=== PATIENT | female | born 1990 | race Caucasian/White ===

== ENCOUNTER 2016-12-30 19:10 | Emergency (ER) | payer OTHER ==
--- NOTE | 2016-12-30 19:41 | PDOC ---
History of Present Illness - General Chief Complaint: Nausea/Vomiting Stated Complaint: 18 WEEKS - HEADACHE Time Seen by Provider: 12/30/16 19:18 History Source: Patient Exam Limitations: No Limitations - History of Present Illness Timing/Duration: 4-6 hours Severity: mild Associated Symptoms: reports: headaches (frontal), nausea/vomiting. denies: chest pain, cough, diaphoresis, fever/chills, malaise, shortness of breath, syncope Past History - Travel Traveled outside of the country in the last 30 days: No Close contact w/someone who was outside of country & ill: No - Past Medical History Allergies/Adverse Reactions: Allergies Allergy/AdvReac Type Severity Reaction Status Date / Time No Known Allergies Allergy Verified 12/30/16 19:34 Home Medications: Ambulatory Orders Progesterone,Micronized [Progesterone] 200 mg PO DAILY 12/30/16 Anemia: No Asthma: No Cancer: No Cardiac Disorders: No CVA: No COPD: No CHF: No Dementia: No Diabetes: No GI Disorders: No Disorders: No HTN: No Hypercholesterolemia: No Liver Disease: No Seizures: No Thyroid Disease: No - Surgical History Abdominal Surgery: Yes (GASTRIC BYPASS 05/2013) Appendectomy: No Cardiac Surgery: No Cholecystectomy: No Lung Surgery: No Neurologic Surgery: No Orthopedic Surgery: No - Immunization History Immunization Up to Date: Yes - Psycho/Social/Smoking Cessation Hx Anxiety: No Suicidal Ideation: No Smoking Status: No Smoking History: Unknown if ever smoked Have you smoked in the past 12 months: No Number of Cigarettes Smoked Daily: 0 Hx Alcohol Use: Yes (SOCIAL) Drug/Substance Use Hx: No Substance Use Type: Alcohol Hx Substance Use Treatment: No Review of Systems - Review of Systems Able to Perform ROS?: Yes Comments:: 12/30/16 19:34 CONSTITUTIONAL: Absent: fever, chills, diaphoresis, generalized weakness, malaise, loss of appetite HEENT: Absent: rhinorrhea, nasal congestion, throat pain, throat swelling, difficulty swallowing, mouth swelling, ear pain, eye pain, visual Changes CARDIOVASCULAR: Absent: chest pain, loss of consciousness, palpitations, irregular heart rate, peripheral edema RESPIRATORY: Absent: cough, shortness of breath, dyspnea with exertion, orthopnea, wheezing, stridor, hemoptysis GASTROINTESTINAL: Absent: abdominal pain, abdominal distension, nausea, vomiting, diarrhea, constipation, melena, hematochezia GENITOURINARY: Absent: dysuria, frequency, urgency, hesitancy, hematuria, flank pain, genital pain MUSCULOSKELETAL: Absent: myalgia, arthralgia, joint swelling SKIN: Absent: rash, itching, pallor HEMATOLOGIC/IMMUNOLOGIC: Absent: easy bleeding, easy bruising, lymphadenopathy, frequent infections ENDOCRINE: Absent: unexplained weight gain, unexplained weight loss, heat intolerance, cold intolerance NEUROLOGIC: headache/frontal Absent: focal weakness or paresthesias, dizziness, unsteady gait, seizure, mental status changes, bladder or bowel incontinence PSYCHIATRIC: Absent: anxiety, depression, suicidal or homicidal ideation, hallucinations. Is the patient limited Barbadian proficient: No *Physical Exam - Vital Signs Last Vital Signs Temp Pulse Resp BP Pulse Ox 99.1 F 90 20 96/61 96 12/30/16 19:18 12/30/16 19:18 12/30/16 19:18 12/30/16 19:18 12/30/16 19:18 - Physical Exam Comments: 12/30/16 19:34 GENERAL: Well developed, well nourished. Awake and alert. No acute distress. HEENT: Normocephalic, atraumatic. PERRLA, EOMI. No conjunctival pallor. Sclera are non- icteric. Moist mucous membranes. Oropharynx is clear. NECK: Supple. Full ROM. No JVD. Carotid pulses 2+ and symmetric, without bruits. No thyromegaly. No lymphadenopathy. CARDIOVASCULAR: Regular rate and rhythm. No murmurs, rubs, or gallops. Distal pulses are 2+ and symmetric. PULMONARY: No evidence of respiratory distress. Lungs clear to auscultation bilaterally. No wheezing, rales or rhonchi. ABDOMINAL: Soft. Non-tender. Non-distended. No rebound or guarding. No organomegaly. Normoactive bowel sounds. MUSCULOSKELETAL Normal range of motion at all joints. No bony deformities or tenderness. No CVA tenderness. EXTREMITIES: No cyanosis. No clubbing. No edema. No calf tenderness. SKIN: Warm and dry. Normal capillary refill. No rashes. No jaundice. NEUROLOGICAL: Alert, awake, appropriate. Cranial nerves 2-12 intact. No deficits to light touch and temperature in face, upper extremities and lower extremities. No motor deficits in the in face, upper extremities and lower extremities. Normoreflexic in the upper and lower extremities. Normal speech. Toes are down- going bilaterally. Gait is normal without ataxia. PSYCHIATRIC: Cooperative. Good eye contact. Appropriate mood and affect. ED Treatment Course - LABORATORY CBC & Chemistry Diagram: 12/30/16 19:50 12/30/16 19:50 *DC/Admit/Observation/Transfer Diagnosis at time of Disposition: Headache following lumbar puncture - Discharge Dispostion Disposition: HOME Condition at time of disposition: Fair - Patient Instructions Printed Discharge Instructions: DI for Post-Spinal Puncture Headache Additional Instructions: Increase fluids Tylenol 650mg every 4-6 hours/around the clock Bed rest Follow up with your [employer] Flatbed Driver As per our conversation, we spoke in depth regarding injections on discharge. It is very important important that you stay bed rest and take the Tylenol and drink plenty of fluids. If this doesn't resolve by Sunday, your to contact your suppository molding machine operator. Lumbar puncture headaches usually are self-limiting. We have discussed blood patch which is approximately 80% successful on the first procedure. On the second blood patch the success rate goes up to approximately 90%. Return back to the emergency department for severe/persistent or worsening symptoms. - Post Discharge Activity Work/School Note: Back to Work Progress Note - Progress Note Progress Note: LMP 08/31/2016 Miscarriage 09/2013 Miscarriage Stillborn: 05/25/2016 OB: Dr. Blanton/[facility] High Risk Cervical Cerclage 26-year-old female presents to the emergency department complaining of a 10/10 dull constant frontal headache since early this morning. Patient states she was seen at [facility] 3 days ago and was discharged earlier yesterday. Patient had a epidural for procedure of cervical cerclage. The headache initially started off light but increased in intensity this evening. The pain is exacerbated when she sitting or standing and alleviated to a 6/10 when in supine position. Patient denies any dizziness, lightheadedness, chest pain, shortness of breath, abdominal pains, vaginal bleed/discharge.
[2016-12-30 19:55] VITALS: BMI 38.7
[2016-12-30 19:59] LABS: BASOPHIL 0.4 % (0-2.0); EOSINOPHIL 1.4 % (0-4.5); MCH 28.6 pg (25.7-33.7); MCHC 33.6 g/dl (32.0-36.0); MEAN PLT VOLUME 8.7 fl (7.5-11.1); NEUTROPHILS 75.6 % (42.8-82.8); PLATELET COUNT 248 K/MM3 (134-434); RDW 13.4 % (11.6-15.6); WHITE BLOOD COUNT 8.6 K/mm3 (4.0-10.0)
[2016-12-30 20:20] LABS: CALCIUM 8.8 mg/dL (8.5-10.1); CREATININE 0.5 mg/dL (0.55-1.02)
[2016-12-30] MEDS ORDERED: METOCLOPRAMIDE HCL INJECTION 10 MG/2 ML VIAL IVPUSH ONE (20:28)
[2016-12-30] MEDS ORDERED: METOCLOPRAMIDE HCL INJECTION 10 MG/2 ML VIAL ONE (20:52)
--- NOTE | 2016-12-30 20:54 | PDOC ---
*Physical Exam - Vital Signs Last Vital Signs Temp Pulse Resp BP Pulse Ox 99.1 F 90 20 96/61 96 12/30/16 19:18 12/30/16 19:18 12/30/16 19:18 12/30/16 19:18 12/30/16 19:18 ED Treatment Course - LABORATORY CBC & Chemistry Diagram: 12/30/16 19:50 12/30/16 19:50 - ADDITIONAL ORDERS Additional order review: Laboratory Results 12/30/16 12/30/16 19:50 19:50 Sodium 142 Potassium 4.2 Chloride 111 H Carbon Dioxide 22 Anion Gap 9 BUN 13 Creatinine 0.5 L Random Glucose 63 L D Calcium 8.8 Beta HCG, Quant 5307.9 12/30/16 19:50 RBC 3.94 MCV 85.0 MCHC 33.6 RDW 13.4 MPV 8.7 Neutrophils % 75.6 Lymphocytes % 16.6 D Monocytes % 6.0 Eosinophils % 1.4 Basophils % 0.4 Medical Decision Making - Medical Decision Making 12/30/16 20:53 Patient seen and evaluated with the nurse practitioner. I agree with the overall evaluation, assessment, and management with the following summary of visit: 26-year-old female status post epidural yesterday, now with post LP headache. Trial of IV fluids, Reglan, Tylenol. Neurologically intact, will reassess regarding need for blood patch. *DC/Admit/Observation/Transfer Diagnosis at time of Disposition: Lumbar puncture headache - Discharge Dispostion Disposition: HOME Condition at time of disposition: Fair - Referrals - Patient Instructions Printed Discharge Instructions: DI for Post-Spinal Puncture Headache Additional Instructions: Increase fluids Tylenol 650mg every 4-6 hours/around the clock Bed rest Follow up with your Bioinformatics Programmer As per our conversation, we spoke in depth regarding injections on discharge. It is very important important that you stay bed rest and take the Tylenol and drink plenty of fluids. If this doesn't resolve by Sunday, your to contact your telescope operator. Lumbar puncture headaches usually are self-limiting. We have discussed blood patch which is approximately 80% successful on the first procedure. On the second blood patch the success rate goes up to approximately 90%. Return back to the emergency department for severe/persistent or worsening symptoms. - Post Discharge Activity Work/School Note: Back to Work
[2016-12-30 21:18] VITALS: BP 110/70; PULSE 88; TEMP 98.5
--- NOTE | 2017-01-01 13:34 | EKG ---
Test Reason : Blood Pressure : / mmHG Vent. Rate : 082 BPM Atrial Rate : 082 BPM P-R Int : 150 ms QRS Dur : 078 ms QT Int : 362 ms P-R-T Axes : 054 041 047 degrees QTc Int : 422 ms NORMAL SINUS RHYTHM NORMAL ECG NO PREVIOUS ECGS AVAILABLE Confirmed by FRIDA KUHN MD ([id number]) on 01/01/2017 1:33:41 PM Referred By: Confirmed By:FRIDA KUHN MD
== END 2016-12-30 21:15 | disposition home or self-care (01) ==
LOC: JER 19:10
DX: O26.892 Other specified pregnancy related conditions, second trimester (principal); G97.1 Other reaction to spinal and lumbar puncture; Y84.4 Aspiration of fluid as the cause of abnormal reaction of the patient, or of later complication, without mention of misadventure at the time of the procedure; Z3A.18 18 weeks gestation of pregnancy
CPT/HCPCS: 36415; 80048; 84702; 85025; 86850; 86900; 86901; 93005; 93010; 99281-25